=== PATIENT | female | born 1980 | race Asian ===

== ENCOUNTER 2023-06-02 23:09 | Day surgery (SDC) | payer MEDICAID ==
[~2023-06-02] VITALS: Ht 162.6 cm; Wt 56.0 kg
[2023-06-03] VITALS (8 sets, daily range): BP systolic 82–101; BP diastolic 48–63; TEMP 97.1–98.4; O2SAT 97–100
[2023-06-03 00:10] LABS: BASO % 0.3 % (0.0-1.0); EOS # 0.2 10^3/uL (0.0-0.5); EOS % 1.7 % (0.0-3.0); HEMATOCRIT 38.1 % (36.0-47.0); HEMOGLOBIN 12.8 g/dl (12.0-15.5); LYMPH # 2.6 10^3/uL (1.5-5.0); LYMPH % 22.6 % (24.0-44.0); MEAN CORPUSCULAR HEMOGLOBIN 30.8 pg (27.0-33.0); MEAN CORPUSCULAR HGB CONC 33.6 g/dl (32.0-36.5); MEAN CORPUSCULAR VOLUME 91.8 fl (80.0-96.0); MONO # 0.7 10^3/uL (0.0-0.8); MONO % 6.3 % (2.0-8.0); NEUTROPHILS # 7.9 10^3/uL (1.5-8.5); NEUTROPHILS % 68.4 % (36.0-66.0); PLATELET COUNT, AUTOMATED 270 10^3/uL (150-450); RED BLOOD COUNT 4.15 10^6/uL (4.00-5.40); WHITE BLOOD COUNT 11.6 10^3/uL (4.0-10.0)
[2023-06-03 00:33] LABS: BLOOD UREA NITROGEN 10 MG/DL (9-23); CALCIUM LEVEL 8.9 MG/DL (8.5-10.1); CARBON DIOXIDE LEVEL 24 MMOL/L (20-31); CHLORIDE LEVEL 104 MMOL/L (98-107); CREATININE FOR GFR 0.55 MG/DL (0.55-1.30); GLOMERULAR FILTRATION RATE > 60.0 (>58); GLUCOSE, FASTING 106 MG/DL (60-100); POTASSIUM SERUM 3.7 MMOL/L (3.5-5.1); SODIUM LEVEL 137 MMOL/L (136-145)
[2023-06-03 00:49] LABS: HCG, SERUM QUANTITATIVE 3032.4 MIU/ML (<4.2)
[2023-06-03] MEDS: PERCOCET 5MG/325MG TAB PO ONE (01:01)
[2023-06-03] MEDS ORDERED: propofoL 200 MG/20 ML VIAL As Ordered ONE (02:32)
[2023-06-03] MEDS ORDERED: LIDOCAINE 2% 100MG/5ML SDV (FOR ANES.) As Ordered ONE (02:32)
[2023-06-03] MEDS ORDERED: fentaNYL 100 MCG/2 ML INJECTION As Ordered ONE (02:33)
[2023-06-03] MEDS ORDERED: MIDAZOLAM INJ 2MG/2ML VIAL As Ordered ONE (02:33)
[2023-06-03] MEDS ORDERED: ONDANSETRON 4MG 2ML VIAL As Ordered ONE (02:37)
[2023-06-03] MEDS ORDERED: ROCURONIUM BROMIDE 50MG/5ML VIAL As Ordered ONE (02:55)
[2023-06-03] MEDS ORDERED: ACETAMINOPHEN 1000MG 100ML IV BAG As Ordered ONE (03:09)
[2023-06-03] MEDS ORDERED: KETOROLAC 60MG 2ML VIAL As Ordered ONE (03:19)
[2023-06-03] MEDS: LR 1,000 ML IV SCH ×2 (03:30→06:35)
[2023-06-03] MEDS: oxyCODONE 5MG TAB PO PRN (04:38)
[2023-06-03] MEDS: HYDROMORPHONE HCL 0.5 MG/ 0.5 ML SYRINGE IV PRN (04:38)
[2023-06-03] MEDS: fentaNYL 100 MCG/2 ML INJECTION IV PRN (04:38)
[2023-06-03] MEDS: ONDANSETRON 4MG 2ML VIAL IV PRN (04:39)
[2023-06-03] MEDS: DOXYCYCLINE HYCLATE 100MG TABLET PO ONE (06:36)
[2023-06-03] MEDS: ACETAMINOPHEN 500 MG TAB PO ONE (06:36)
[2023-06-03] MEDS ORDERED: IBUP-1022 PO (07:23)
== END 2023-06-03 11:30 | disposition home or self-care (01) ==
LOC: M ED 23:09 → M SDC 06-03 00:30 → ENRESERV 06-03 03:36 → M PED 06-03 04:10 → M SDC 06-03 11:30
PROVIDERS: ATTEND Specialist
DX: O03.1 Delayed or excessive hemorrhage following incomplete spontaneous abortion (principal)
CPT/HCPCS: 59812; 76815; 80048; 84702; 85025; 86850; 86900; 86901; 88305; 99285; J0131; J1100; J1885; J2250; J2405; J3010

== ENCOUNTER → 2023-07-02 | Outpatient (CLI) | payer MEDICAID, OTHER ==
[~2023-07-02] MED LIST: IBUP-1022 PO
== END ==
LOC: M WUC 14:47
PROVIDERS: ATTEND Physician Assistant
DX: M77.12 Lateral epicondylitis, left elbow (principal); M77.11 Lateral epicondylitis, right elbow

== ENCOUNTER → 2023-12-02 | Outpatient (CLI) | payer OTHER | LOC: M CARPUL 14:19 | PROVIDERS: ATTEND Student in an Organized Health Care Education/Training Program | DX: R01.2 Other cardiac sounds (principal) ==

== ENCOUNTER → 2023-12-04 | Outpatient (CLI) | payer OTHER ==
[2023-12-04 16:54] LABS: ALBUMIN 3.5 G/DL (3.2-5.2); ALKALINE PHOSPHATASE 60 U/L (46-116); ALT/SGPT 14 U/L (7.0-40); AST/SGOT < 8 U/L (<34); BILIRUBIN,DIRECT < 0.1 MG/DL (<0.4); BILIRUBIN,TOTAL 0.3 MG/DL (0.3-1.2); THYROID STIMULATING HORMONE 1.012 uIU/ML (0.55-4.78); TOTAL PROTEIN 6.9 G/DL (5.7-8.2)
[2023-12-04 16:55] LABS: VITAMIN B12 LEVEL 461 PG/ML (211-911)
[2023-12-04 16:56] LABS: FREE T4 1.27 NG/DL (0.89-1.76)
[2023-12-04 17:00] LABS: HEMOGLOBIN A1c 5.2 % (4.0-6.0)
== END ==
LOC: M WUC 13:57
PROVIDERS: ATTEND Student in an Organized Health Care Education/Training Program
DX: M79.602 Pain in left arm (principal)

== ENCOUNTER → 2023-12-25 | Outpatient (CLI) | payer OTHER ==
[2023-12-25 17:58] LABS: HEMATOCRIT 39.6 % (36.0-47.0); HEMOGLOBIN 12.9 g/dl (12.0-15.5); MEAN CORPUSCULAR HEMOGLOBIN 29.9 pg (27.0-33.0); MEAN CORPUSCULAR HGB CONC 32.6 g/dl (32.0-36.5); MEAN CORPUSCULAR VOLUME 91.7 fl (80.0-96.0); PLATELET COUNT, AUTOMATED 252 10^3/uL (150-450); RED BLOOD COUNT 4.32 10^6/uL (4.00-5.40); WHITE BLOOD COUNT 7.2 10^3/uL (4.0-10.0)
[2023-12-25 20:17] LABS: GC DNA AMPLIFICATION NEGATIVE (NEGATIVE)
[2023-12-26 18:41] LABS: HIV 1&2 SCREEN NEGATIVE (NEGATIVE)
[2023-12-26 18:49] LABS: HEPATITIS C VIRUS ABY INDEX < 0.02 INDEX (<0.8)
== END ==
LOC: M PLALAB 14:46
PROVIDERS: ATTEND Specialist
DX: Z34.81 Encounter for supervision of other normal pregnancy, first trimester (principal)

== ENCOUNTER → 2023-12-31 | Outpatient (CLI) | payer OTHER | LOC: M PLAIMG 12:30 | PROVIDERS: ATTEND Student in an Organized Health Care Education/Training Program | DX: R01.2 Other cardiac sounds (principal) ==

== ENCOUNTER → 2024-02-04 | Outpatient (CLI) | payer OTHER | LOC: M PLALAB 10:55 | PROVIDERS: ATTEND Specialist | DX: Z34.82 Encounter for supervision of other normal pregnancy, second trimester (principal) ==

== ENCOUNTER → 2024-03-12 | Outpatient (CLI) | payer OTHER | LOC: M WHC 12:41 | PROVIDERS: ATTEND Specialist | DX: Z34.82 Encounter for supervision of other normal pregnancy, second trimester (principal) ==

== ENCOUNTER → 2024-05-04 | Outpatient (CLI) | payer OTHER ==
[2024-05-04 13:54] LABS: HEMATOCRIT 36.9 % (36.0-47.0); HEMOGLOBIN 11.6 g/dl (12.0-15.5); MEAN CORPUSCULAR HEMOGLOBIN 29.5 pg (27.0-33.0); MEAN CORPUSCULAR HGB CONC 31.4 g/dl (32.0-36.5); MEAN CORPUSCULAR VOLUME 93.9 fl (80.0-96.0); PLATELET COUNT, AUTOMATED 272 10^3/uL (150-450); RED BLOOD COUNT 3.93 10^6/uL (4.00-5.40); WHITE BLOOD COUNT 8.9 10^3/uL (4.0-10.0)
[2024-05-04 14:16] LABS: GLUCOSE CHALLENGE TEST 1 HOUR 110 MG/DL (LESS THAN 140)
[2024-05-04 14:51] LABS: HIV 1&2 SCREEN NEGATIVE (NEGATIVE)
[2024-05-04 14:59] LABS: HEPATITIS C VIRUS ABY INDEX 0.03 INDEX (<0.8)
[2024-05-04 16:15] LABS: GC DNA AMPLIFICATION NEGATIVE (NEGATIVE)
== END ==
LOC: M PLALAB 08:53
PROVIDERS: ATTEND Obstetrics & Gynecology
DX: Z34.82 Encounter for supervision of other normal pregnancy, second trimester (principal)

== ENCOUNTER → 2024-06-01 | Outpatient (CLI) | payer OTHER | LOC: M WHC 08:44 | PROVIDERS: ATTEND Obstetrics & Gynecology | DX: O09.523 Supervision of elderly multigravida, third trimester (principal) ==

== ENCOUNTER → 2024-06-15 | Outpatient (CLI) | payer OTHER | LOC: M RAD 10:18 | PROVIDERS: ATTEND Specialist | DX: Z34.83 Encounter for supervision of other normal pregnancy, third trimester (principal) ==

== ENCOUNTER → 2024-07-14 | Outpatient (REF) | payer OTHER | LOC: M PLALAB 13:31 | PROVIDERS: ATTEND Nurse Practitioner Family | DX: Z36.85 Encounter for antenatal screening for Streptococcus B (principal); Z3A.36 36 weeks gestation of pregnancy ==

== ENCOUNTER → 2025-01-07 | Outpatient (REF) | payer OTHER ==
[~2025-01-07] MED LIST changes: +CETI10CH PO; -IBUP-1022 PO; +IBUP600T42 PO; +MULTTAB20 PO
[2025-01-07 21:01] LABS: Trichomonas vaginalis (AMP) NOT DETECTED (NEGATIVE)
[2025-01-07 21:25] LABS: GC DNA AMPLIFICATION NEGATIVE (NEGATIVE)
[2025-01-26 14:01] LABS: HPV APTIMA Not Detected (Not Detected)
== END ==
LOC: M PLALAB 15:29
PROVIDERS: ATTEND Nurse Practitioner Family
DX: Z12.4 Encounter for screening for malignant neoplasm of cervix (principal); Z11.3 Encounter for screening for infections with a predominantly sexual mode of transmission

== ENCOUNTER → 2025-01-07 | Outpatient (CLI) | payer OTHER | LOC: M WHC 13:51 | PROVIDERS: ATTEND Nurse Practitioner Family | DX: Z12.31 Encounter for screening mammogram for malignant neoplasm of breast (principal); R92.323 Mammographic fibroglandular density, bilateral breasts ==